=== PATIENT | female | born 1980 | race Caucasian/White ===

== ENCOUNTER 2017-01-22 09:57 | Emergency (ER) | payer OTHER ==
[~2017-01-22] VITALS: Ht 154.9 cm; Wt 86.2 kg
[2017-01-22 10:01] VITALS: BP 132/85
--- NOTE | 2017-01-22 10:32 | NUR ---
PT BACK FROM XRAY VIA WHEEL CHAIR BY BANDAR CRAVEN
--- NOTE | 2017-01-22 10:34 | NUR ---
PT PRESENTS TO ER W/C/O RIGHT FOOT PAIN. PT STATES SHE TRIPPED ON CURB LAST NOC WHILE AMBULATING AND HAS HAD SEVERE PAIN SINCE THAT TIME. PT DENIES ANY OTHER MEDICAL HX. DENIES N/V/D; SKIN IS PINK/WARM/DRY; AAOX4 WITH EVEN AND STEADY GAIT; LUNGS CLEAR BL; HR EVEN AND REGULAR; PT DENIES ANY FEVER, CP, SOB, OR COUGH AT THIS TIME; PATIENT STATES PAIN OF 10/10 ON RIGHT ANKLE AT THIS TIME; VSS; PATIENT POSITIONED FOR COMFORT; HOB ELEVATED; BEDRAILS UP X2; BED DOWN. ER MD MADE AWARE OF PT STATUS.
[2017-01-22] MEDS ORDERED: KETOROLAC 60 MG/2 ML VIAL IM ONE (10:45)
[2017-01-22 11:10] VITALS: BP 117/86
--- NOTE | 2017-01-22 11:10 | NUR ---
Patient discharged with v/s stable. Written and verbal after care instructions given and explained. Patient verbalized understanding. Wheel Chair Assisted with to car. All questions addressed prior to discharge. Advised to follow up with PMD.
== END 2017-01-22 11:10 | disposition home or self-care (01) ==
LOC: MED 09:57
DX: S93.491A Sprain of other ligament of right ankle, initial encounter (principal); S80.212A Abrasion, left knee, initial encounter; R03.0 Elevated blood-pressure reading, without diagnosis of hypertension; W01.0XXA Fall on same level from slipping, tripping and stumbling without subsequent striking against object, initial encounter; Y93.89 Activity, other specified; Y92.89 Other specified places as the place of occurrence of the external cause; Y99.8 Other external cause status
CPT/HCPCS: 73610; 73630; 96372; 99284; J1885